=== PATIENT | male | born 1990 ===

== ENCOUNTER → 2021-01-14 | Emergency (ER) | payer SELFPAY ==
[~2021-01-14] VITALS: Ht 180.3 cm; Wt 70.4 kg
[~2021-01-14] MED LIST: SULF1TAB24 PO
[2021-01-14 22:45] VITALS: BP 116/59
--- NOTE | 2021-01-14 22:45 | PHYS DOC ---
Past Medical History Past Medical History: Other Additional Past Medical Histor: CATHS FOR URINE Past Surgical History: Other Additional Past Surgical Histo: BACK Smoking Status: Current Every Day Smoker Alcohol Use: None General Adult EDM: Chief Complaint: ABSCESS HPI: HPI: Patient is a 30 year old male who presents with 3 days of a golf ball sized posterior shoulder abscess without any current drainage. He is afebrile. He rates his pain an 8 out of 10. Patient states he has been using a warm compress. States he recently had a spinal surgery because he fell of a 50 foot tree. He is walking with a walker. He states he is not been taking anything for pain. Patient denies fever, nausea, vomiting, diarrhea, cough, shortness of air, abdominal pain, headache, dizziness. Review of Systems: Review of Systems: Constitutional: Denies fever or chills. [] Eyes: Denies change in visual acuity. [] HENT: Denies nasal congestion or sore throat. [] Respiratory: Denies cough or shortness of breath. [] Cardiovascular: Denies chest pain or edema. [] GI: Denies abdominal pain, nausea, vomiting, bloody stools or diarrhea. [] : Denies dysuria. [] Musculoskeletal: Denies back pain or + right shoulder joint pain. [] Integument: Denies rash. + Right shoulder abscess [] Neurologic: Denies headache, focal weakness or sensory changes. [] Endocrine: Denies polyuria or polydipsia. [] Lymphatic: Denies swollen glands. [] Psychiatric: Denies depression or anxiety. [] Heart Score: C/O Chest Pain: No Risk Factors: Risk Factors: DM, Current or recent (<one month) smoker, HTN, HLP, family history of CAD, obesity. Risk Scores: Score 0 - 3: 2.5% MACE over next 6 weeks - Discharge Home Score 4 - 6: 20.3% MACE over next 6 weeks - Admit for Clinical Observation Score 7 - 10: 72.7% MACE over next 6 weeks - Early Invasive Strategies Allergies: Allergies: Allergies Coded Allergies Type Severity Reaction Last Updated Verified No Known Drug Allergies 01/14/21 No Physical Exam: PE: Constitutional: Well developed, well nourished, no acute distress, non-toxic appearance. [] HENT: Normocephalic, atraumatic, bilateral external ears normal, oropharynx moist, no oral exudates, nose normal. [] Eyes: PERRLA, EOMI, conjunctiva normal, no discharge. [] Neck: Normal range of motion, no tenderness, supple, no stridor. [] Cardiovascular:Heart rate regular rhythm, no murmur [] Lungs & Thorax: Bilateral breath sounds clear to auscultation [] Abdomen: Bowel sounds normal, soft, no tenderness, no masses, no pulsatile masses. [] Skin: Warm, dry, right shoulder golf ball sized erythema with abscess, no rash. [] Back: No tenderness, no CVA tenderness. [] Extremities: No tenderness, no cyanosis, no clubbing, ROM intact, no edema. [] Neurologic: Alert and oriented X 3, normal motor function, normal sensory function, no focal deficits noted. [] Psychologic: Affect normal, judgement normal, mood normal. [] Current Patient Data: Vital Signs: Vital Signs Date Time Temp Pulse Resp B/P (MAP) Pulse Ox O2 Delivery O2 Flow Rate FiO2 01/14/21 22:08 97.7 115 18 136/66 (89) 98 Room Air 97.7 EKG: EKG: [] Radiology/Procedures: Radiology/Procedures: [] Course & Med Decision Making: Course & Med Decision Making Pertinent Labs and Imaging studies reviewed. (See chart for details) See HPI. Alert and oriented x4. Ambulatory with steady gait using a walker. Golf sized hard nondraining reddened abscess to the back of the right shoulder. Afebrile. Speaks in full clear sentences. Abscess is outlined with a marker. [] Vickie Disclaimer: Vickie Disclaimer: This electronic medical record was generated, in whole or in part, using a voice recognition dictation system. Departure Departure Impression: Primary Impression: Abscess Disposition: HOME / SELF CARE / HOMELESS Condition: STABLE Patient Instructions: Abscess, Abscess, Care After Additional Instructions: Follow-up in 48 hours here for a wound recheck. Take medication as prescribed and with food. Use a heating pad to help with your pain. Take ibuprofen to help with pain. Scripts Sulfamethoxazole/Trimethoprim (BACTRIM DS TABLET) 1 Each Tablet 1 TAB PO BID for 10 Days, #20 TAB 0 Refills Prov: ALYSSA DALEY APRN 01/14/21 ALYSSA DALEY APRN Jan 14, 2021 22:45
== END | disposition home or self-care (01) ==
LOC: ER 22:08
DX: L02.413 Cutaneous abscess of right upper limb (principal); F17.200 Nicotine dependence, unspecified, uncomplicated
CPT/HCPCS: 99283